=== PATIENT | male | born 1970 | race American Indian/Alaskan Native ===

== ENCOUNTER 2019-05-08 11:48 | Day surgery (SDC) | payer OTHER ==
[2019-05-08] MEDS ORDERED: XYLOCAINE MPF 2% ONE (13:30)
--- NOTE | 2019-05-08 13:50 | Anesthesia Consultation ---
Anesthesia Consult and Med Hx Date of service: 05/08/19 - Airway Anesthetic Teeth Evaluation: Good ROM Head & Neck: Adequate Mental/Hyoid Distance: Adequate Mallampati Class: Class II Intubation Access Assessment: Good - Pulmonary Exam CTA: Yes - Cardiac Exam Cardiac Exam: RRR - Pre-Operative Health Status ASA Pre-Surgery Classification: ASA2 Proposed Anesthetic Plan: MAC - Cardiovascular System Hx Hypertension: Yes
--- NOTE | 2019-05-08 13:51 | Anesthesia Day of Surgery ---
Anesthesia Day of Surgery - Day of Surgery Patient Examined: Yes Patient H&P Reviewed: Yes Patient is NPO: Yes
[2019-05-08] MEDS ORDERED: NACL 0.9% 1000 ML 1,000 ML IV SCH (14:00)
[2019-05-08] MEDS ORDERED: VERSED ONE (15:21)
[2019-05-08] MEDS ORDERED: DIPRIVAN 10 MG/ML IV ONE ×2 (15:21→15:22)
--- NOTE | 2019-05-08 15:54 | Discharge Summary ---
Short Stay Discharge Plan Activity: advance as tolerated Weight Bearing Status: Weight Bear as Tolerated Diet: regular Follow up with: [facility] [Primary Care Provider] - 7 Days
--- NOTE | 2019-05-08 15:54 | Operative Report ---
Operative Report Operative Report: Date of procedure: 03/16/2019 Procedure: Colonoscopy with submucosal injection and snare polypectomy. Attending physician: Haim Graham MD Supervisor Patching: Haim Graham MD Indication: Patient is a 48-year-old male who presents for screening colonoscopy. Patient has a family history of colorectal cancer.. This colonoscopy serves to evaluate patient so that treatment may be directed based on the findings. Consent: Informed consent was obtained after advising the patient and family regarding nature of this procedure, its indications, potential benefits as well as possible complications including but not limited to bleeding perforation and adverse reaction to medication, infection as well as other cardiopulmonary complications. An informed written and verbal consent was then obtained after due opportunity was provided for questions and answers. Monitoring: Patient was monitored continuously with pulse oximetry and electrocardiographic recordings as well as blood pressure recordings. Vital signs remained stable throughout this procedure with no untoward events. Preoperative assessment: Patient was assessed immediately prior to this procedure for capacity to tolerate monitored anesthesia care and moderate sedation as well as general anesthesia. Patient's ASA classification is 2, Mall ampati class is 2, Hyomental distance is 3. Instrument: CF HQ 190L Olympus video colonoscope. Medications: Propofol given intravenously in divided doses. For details please refer to anesthesia records. Description of procedure: Patient was placed in the left lateral decubitus position after achieving sedation, a digital rectal examination was performed following which the colonoscope was introduced into the anal verge and advanced to the cecum which was identified by the cecal valve, the appendiceal orifice, as well as by the cecal strap and direct transillumination. The colonoscope was subsequently withdrawn with careful inspection of all mucosal surfaces. Patient tolerated this procedure well and was subsequently taken to the recovery room. The following findings were noted. Findings: Patient had substantial retained stool distributed throughout the entire colon with semi-formed stool and areas of thick liquid stool. The preparation was suboptimal. Patient had dense adherent stool in the cecum. There were no gross mucosal abnormalities seen in the ascending colon and transverse colon. In the descending colon and sigmoid colon, patient had diverticula of moderate severity. In the sigmoid colon, patient had a 1 cm sessile polyp. This was elevated with submucosal injection of saline and removed by snare electrocautery and retrieved. There were no other gross muc osal lesions seen in the sigmoid colon and in the rectum. The patient had substantial amounts of stool in the rectum on seen in the antegrade and in the retroflex examination. On a retroflexed view of the anal verge, patient had internal hemorrhoids. Impression: Sigmoid colon polyp status post submucosal injection and snare polypectomy . Colonic diverticulosis Retained stool Internal hemorrhoids. Plan: Follow pathology report. High-fiber diet. Repeat colonoscopy in 6-12 months due to poor colonoscopic preparation and findings of colon polyp.
[2019-05-08 16:25] VITALS: BP 152/99
== END 2019-05-08 11:49 | disposition home or self-care (01) ==
LOC: GIO 11:48
PROVIDERS: ATTEND Internal Medicine Gastroenterology
DX: Z12.11 Encounter for screening for malignant neoplasm of colon (principal); D12.5 Benign neoplasm of sigmoid colon; K64.8 Other hemorrhoids; K57.30 Diverticulosis of large intestine without perforation or abscess without bleeding; I10 Essential (primary) hypertension; F17.210 Nicotine dependence, cigarettes, uncomplicated; Z98.890 Other specified postprocedural states; Z80.0 Family history of malignant neoplasm of digestive organs; Z79.899 Other long term (current) drug therapy
CPT/HCPCS: 45381; 45385; 88305; J2250; J2704; J7030